=== PATIENT | male | born 1940 | race Caucasian/White ===

== ENCOUNTER → 2016-04-18 09:02 | Day surgery (SDC) | payer OTHER ==
[~2016-04-18 09:02] MED LIST: Acetaminophen TAB* 325 MG PO PRN; Buffered Lidocaine 1% SYR 3ML* 3 ML/SYR SYRINGE INTRADERM ONE; Buffered Lidocaine 1% SYR 3ML* 3 ML/SYR SYRINGE ONE; Cyclopentolate 1% OPTH.SOL* 2 ML BTL ONE; Flurbiprofen 0.03% OPTH.SOL* 2.5 ML BTL ONE; Lidocaine 1% MPF* 2 ML VIAL ONE; Midazolam* 1 MG/ML 2 ML VIAL (2 MG) ONE; Neomycin/Polymy/Dex OPHTH.OIN* 3.5 GM ONE; Phenylephrine 2.5% OPTH.SOL* 2 ML BTL ONE; Tetracaine 0.5% OPTH.SOL 4 ML* 1 DROP BTL ONE; Tropicamide 1% OPTH.SOL* BTL ONE
[2016-04-18 11:50] VITALS: BP 143/83
--- NOTE | 2016-04-18 21:31 | OP ---
DATE OF OPERATION: 04/18/16 [facility] DATE OF : 44 SURGEON: Dr. Zain Palacios. INSTRUCTOR DECORATING: None. ANESTHESIOLOGIST: Mauricio Luna MD ANESTHESIA: Topical with intravenous sedation. PRE-OP DIAGNOSIS: Cataract, right eye. POST-OP DIAGNOSIS: Cataract, right eye. OPERATIVE PROCEDURE: Phacoemulsification and cataract extraction with posterior chamber intraocular lens implant, right eye. COMPLICATIONS: None. BLOOD LOSS: None. DESCRIPTION OF PROCEDURE: The patient was brought to the operating room and received a small amount of intravenous sedation. A drop of Tetracaine was placed in his right eye. He was prepped and draped in the usual sterile fashion for ophthalmic surgery and attention was directed to the right eye where a speculum was placed. A paracentesis was created at the 11 o'clock position and 0.1 cc of 1 percent preservative-free Lidocaine was injected into the anterior chamber followed by DisCoVisc. The eye was digitally stabilized while a 2.75 mm keratome was used to create a triplanar clear corneal incision at the 9 o'clock position. A continuous curvilinear capsulorrhexis was created with a cystotome and Utrata forceps. BSS on a cannula was used to hydrodissect the lens from the capsule. Phacoemulsification was performed in a divide-and- conquer technique to create four fragments which were removed. Residual cortical material was removed with irrigation and aspiration. DisCoVisc was used to inflate the capsular bag and an SN6AD1 15.0 diopter lens was folded and inserted into the capsular bag. DisCoVisc was removed using irrigation and aspiration. BSS on a cannula was used to hydrate the corneal stroma and seal the wound. At the end of the case the pupil was round and the lens was centered. The eye was of normal pressure and the wound was water tight. The speculum was removed and topical Maxitrol ointment was placed on the surface of the eye. The eye was closed, patched and shielded and the patient was sent to the recovery room in stable condition with post operative instructions and follow-up appointment given. [id number]/CPS #: [id number] MTDD
== END | disposition home or self-care (01) ==
LOC: OREAST 09:02
PROVIDERS: ATTEND Ophthalmology
DX: H25.11 Age-related nuclear cataract, right eye (principal); Z86.711 Personal history of pulmonary embolism; Z79.01 Long term (current) use of anticoagulants
CPT/HCPCS: A9270-GY; J2250; V2632

== ENCOUNTER → 2016-04-25 09:39 | Day surgery (SDC) | payer OTHER ==
[~2016-04-25 09:39] MED LIST changes: -Buffered Lidocaine 1% SYR 3ML* 3 ML/SYR SYRINGE ONE; +Lidocaine 2% PF * 5 ML VIAL ONE; -Midazolam* 1 MG/ML 2 ML VIAL (2 MG) ONE; +Propofol* 10 MG/ML 20 ML BTL IV PUSH ONE
[2016-04-25 12:02] VITALS: BP 144/82
--- NOTE | 2016-04-25 15:23 | OP ---
DATE OF OPERATION/DATE OF DICTATION: 04/25/2016 - [facility] DATE OF : 1940. SURGEON: Dr. Zain Palacios. LABORER ORCHARD: None. ANESTHESIOLOGIST: Aleks Alcantar DO ANESTHESIA: Topical with intravenous sedation. PRE-OP DIAGNOSIS: Cataract, left eye. POST-OP DIAGNOSIS: Cataract, left eye. OPERATIVE PROCEDURE: Phacoemulsification and cataract extraction with posterior chamber intraocular lens implant, left eye. COMPLICATIONS: None. BLOOD LOSS: None. DESCRIPTION OF PROCEDURE: The patient was brought to the operating room and received a small amount of intravenous sedation. A drop of Tetracaine was placed in his left eye. He was prepped and draped in the usual sterile fashion for ophthalmic surgery and attention was directed to the left eye where a speculum was placed. A paracentesis was created at the 5 o'clock position and 0.1 cc of 1 percent preservative-free Lidocaine was injected into the anterior chamber followed by DisCoVisc. The eye was digitally stabilized while a 2.75 mm keratome was used to create a triplanar clear corneal incision at the 3 o'clock position. A continuous curvilinear capsulorrhexis was created with a cystotome and Utrata forceps. BSS on a cannula was used to hydrodissect the lens from the capsule. Phacoemulsification was performed in a [id number] technique to create four fragments which were removed. Residual cortical material was removed with irrigation and aspiration. DisCoVisc was used to inflate the capsular bag and an SN6AD1 12.5 diopter lens was folded and inserted into the capsular bag. DisCoVisc was removed using irrigation and aspiration. BSS on a cannula was used to hydrate the corneal stroma and seal the wound. At the end of the case the pupil was round and the lens was centered. The eye was of normal pressure and the wound was water tight. The speculum was removed and topical Maxitrol ointment was placed on the surface of the eye. The eye was closed, patched and shielded and the patient was sent to the recovery room in stable condition with post operative instructions and follow-up appointment given. [id number]/CPS #: [id number] [facility]
== END | disposition home or self-care (01) ==
LOC: OREAST 09:39
PROVIDERS: ATTEND Ophthalmology
DX: H25.12 Age-related nuclear cataract, left eye (principal); Z86.711 Personal history of pulmonary embolism; Z79.01 Long term (current) use of anticoagulants
CPT/HCPCS: A9270-GY; J2704; V2632

== ENCOUNTER 2017-10-30 21:20 | Emergency (ER) | payer OTHER ==
[2017-10-30 21:26] VITALS: BP 172/87
[2017-10-30] MEDS ORDERED: NS 0.9% 1000 ML* 1,000 ML IV ONE (21:28)
--- NOTE | 2017-10-30 21:28 | ED ---
Abdominal Pain/Male - HPI Summary HPI Summary: The pt is a 77 y/o male presenting to c/o severe LLQ pain since 20:30 today. The sudden onset pain is constant. 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 The pt is on Coumadin. 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 [id number], TONSILECYOMY. VASECTOMY 1982. [facility] 2013 ON FACE. WISDOM TEETH Hx Anesthesia Reactions: No - Family History Known Family History: Positive: Renal Disease - Nephrolithiasis Negative: Blood Disorder - Social History Occupation: Employed Full-time Lives: With Family Alcohol Use: None Substance Use Type: Reports: None Smoking Status (MU): Never Smoked Tobacco Review of Systems Constitutional: Negative - Fever Positive: Abdominal Pain - At the LLQ All Other Systems Reviewed And Are Negative: Yes Physical Exam - Summary Physical Exam Summary: General: well-appearing,moderate to severe pain distress Skin: warm, appears pale, dry Head: normal Eyes: EOMI, KENNEDY ENT: normal Neck: supple, nontender Respiratory: CTA, breath sounds present Cardiovascular: RRR Abdomen: tender to palpation of the LLQ Bowel: Hypoactive bowel sounds Musculoskeletal: normal, strength/ROM intact Neurological: sensory/motor intact, A&O x3 Psychological: affect/mood appropriate Triage Information Reviewed: Yes Vital Signs On Initial Exam: Initial Vital Signs Temp 95.8 F 10/30/17 21:22 Pulse 58 10/30/17 21:22 Resp 24 10/30/17 21:22 BP 172/87 10/30/17 21:22 Pulse Ox 100 10/30/17 21:22 Vital Signs Reviewed: Yes Abdominal Pain Fem Course/Dx - Course Course Of Treatment: TRANSFERED TO EMERGENCY DEPARTMENT FOR EVALUATION OF LEFT SIDED ABDOMINAL PAIN. - Diagnoses Provider Diagnoses: Left sided abdominal pain Discharge - Sign-Out/Discharge Documenting (check all that apply): Patient Departure - Transfer All imaging exams completed and their final reports reviewed: No Studies - Discharge Plan Condition: Stable Disposition: ADMITTED TO OTHER HOSPITAL Referrals: Yoseph Du MD [Primary Care Provider] - - Billing Disposition and Condition Condition: STABLE Disposition: Admitted to Other Hospital - Attestation Statements Document Initiated by Scribe: Yes Documenting Scribe: Sandra Henriquez Provider For Whom Scribe is Documenting (Include Credential): Dr. Dov Alcantar MD Scribe Attestation: Sandra Romo , scribed for Dr. Dov Aclantar MD on 10/30/17 at 2148. Scribe Documentation Reviewed: Yes Provider Attestation: The documentation as recorded by the scribeSandra accurately reflects the service I personally performed and the decisions made by , Dr. Dov Alcantar MD
[2017-10-30] MEDS ORDERED: Morphine VIAL* 10 MG/ML 1 ML VIAL IV ONE (21:29)
[2017-10-30] MEDS ORDERED: Ondansetron INJ* 2 MG/ML VIAL IV ONE (21:29)
== END 2017-10-30 21:50 | disposition short-term general hospital (02) ==
LOC: UCEAST 21:20
DX: R10.32 Left lower quadrant pain (principal); Z87.19 Personal history of other diseases of the digestive system; Z86.711 Personal history of pulmonary embolism; Z79.01 Long term (current) use of anticoagulants
CPT/HCPCS: 96360; 96374; 96375; 99203; G0463; J2270; J2405

== ENCOUNTER 2017-10-30 22:09 | Emergency (ER) | payer OTHER ==
[2017-10-30] MEDS ORDERED: Morphine VIAL* 10 MG/ML 1 ML VIAL IV ONE (22:29)
--- NOTE | 2017-10-30 22:38 | ED ---
Abdominal Pain/Male - HPI Summary HPI Summary: This patient is a 77 year old M BIBA to [facility] from urgent care with a chief complaint of L flank pain radiating to back that began at approximately 2030. The patient rates the pain 10/10 in severity. Symptoms aggravated by nothing. Symptoms alleviated by nothing. Patient reports nausea. - History of Current Complaint Chief Complaint: EDFlankPain Stated Complaint: ABD PAIN-SENT F/CC Time Seen by Provider: 10/30/17 22:29 Hx Obtained From: Patient Onset/Duration: Sudden Onset, Lasting Hours, Still Present Timing: Constant Severity Initially: Severe Severity Currently: Severe Pain Intensity: 10 Pain Scale Used: 0-10 Numeric Location: Flank Radiates: Yes Radiates to: Back Character: Sharp Aggravating Factor(s): Nothing Alleviating Factor(s): Nothing Associated Signs And Symptoms: Positive: Nausea - Allergies/Home Medications Allergies/Adverse Reactions: Allergies Allergy/AdvReac Type Severity Reaction Status Date / Time No Known Allergies Allergy Verified 10/30/17 21:27 PMH/Surg Hx/FS Hx/Imm Hx Previously Healthy: No Respiratory History: Reports: 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 [id number], TONSILECYOMY. VASECTOMY 1982. [facility] 2013 ON FACE. WISDOM TEETH Hx Anesthesia Reactions: No Infectious Disease History: No Infectious Disease History: Denies: Traveled Outside the [place] in Last 30 Days - Family History Known Family History: Positive: Renal Disease - Nephrolithiasis Negative: Blood Disorder - Social History Occupation: Employed Full-time Lives: With Family Alcohol Use: None Hx Substance Use: No Substance Use Type: Reports: None Hx Tobacco Use: No Smoking Status (MU): Never Smoked Tobacco Review of Systems Negative: Fever Positive: Nausea, Other - Positive L flank pain All Other Systems Reviewed And Are Negative: Yes Physical Exam - Summary Physical Exam Summary: Appearance: Well-appearing, Well-nourished, lying in bed comfortably Skin: Warm, dry, no obvious rash Eyes: sclera anicteric, no conjunctival pallor ENT: mucous membranes moist, pharynx appears normal Neck: Supple, nontender Respiratory: Clear to auscultation, no signs of respiratory distress Cardiovascular: Normal S1, S2. No murmurs. Normal distal pulses in tibial and radial bilaterally. Abdomen: Soft, nontender, normal active bowel sounds present, colicky in appearance Musculoskeletal: Normal, Strength/ROM Intact Neurological: A&Ox3, awake and alert, mentation is normal, speech is fluent and appropriate Psychiatric: affect is normal, does not appear anxious or depressed Triage Information Reviewed: Yes Vital Signs On Initial Exam: Initial Vitals Temp Pulse Resp BP Pulse Ox 97 F 66 24 168/110 100 10/30/17 22:25 10/30/17 22:25 10/30/17 22:25 10/30/17 22:25 10/30/17 22:25 Vital Signs Reviewed: Yes Diagnostics - Vital Signs Vital Signs Temp Pulse Resp BP Pulse Ox 10/30/17 22:25 97 F 66 24 168/110 100 - Laboratory Result Diagrams: 10/30/17 22:39 10/30/17 22:39 Lab Statement: Any lab studies that have been ordered have been reviewed, and results considered in the medical decision making process. - CT CT Abdomen and Pelvis CT Interpretation Completed By: Radiologist - CT abdomen and pelvis reveals, per radiologist, 1. Mildly obstructing 3 mm calculus distal third left ureter. 2. Bilateral nonobstructing renal calculi. 3. Diffuse colonic diverticulosis. ED physician has reviewed this radiology report. Re-Evaluation - Re-Evaluation First Eval Change: Improved Abdominal Pain Fem Course/Dx - Diagnoses Provider Diagnoses: Renal colic on left side Discharge - Sign-Out/Discharge Documenting (check all that apply): Patient Departure - Discharge Plan Condition: Good Disposition: HOME Prescriptions: Ondansetron [Zofran Odt] 8 mg PO Q6HR PRN #12 tab.rapdis PRN Reason: Nausea oxyCODONE TAB* [Roxycodone TAB 5 mg*] 5 mg PO Q4H PRN #20 tab MDD 8 tablets PRN Reason: Pain Patient Education Materials: Kidney Stones (ED) Referrals: Yoseph Du MD [Primary Care Provider] - - Billing Disposition and Condition Condition: GOOD Disposition: Home - Attestation Statements Document Initiated by Emmett: Yes Documenting Scribe: Sravani Sawyer Provider For Whom Emmett is Documenting (Include Credential): Víctor Borja MD Scribe Attestation: Sravain Romo, scribed for Víctor Borja MD on 10/31/17 at 0423. Scribe Documentation Reviewed: Yes Provider Attestation: The documentation as recorded by the Sravani troncoso accurately reflects the service I personally performed and the decisions made by me, Víctor Borja MD
[2017-10-30 22:46] LABS: ABS Basophils 0.1 10^3/ul (0-0.2); ABS Eosinophils 0 10^3/ul (0-0.6); ABS Lymphocytes 1.6 10^3/ul (1.0-4.8); ABS Monocytes 0.7 10^3/ul (0-0.8); ABS Neutrophils 15.9 10^3/ul (1.5-7.7); ABS Nucleated RBC 0 10^3/ul; Eosinophil % 0.1 % (0-6); Hematocrit 41 % (42-52); Lymphocyte % 8.6 % (25-47); Mean Corpuscular HGB Conc 34 g/dl (31-36); Mean Corpuscular Hemoglobin 31 pg (27-31); Mean Corpuscular Volume 90 fL (80-94); Mean Platelet Volume 8.6 um3 (7.4-10.4); Nucleated Red Blood Cells % 0; Platelet Count 273 10^3/ul (150-450); Red Blood Count 4.57 10^6/ul (4.00-5.40); Red Cell Distribution Width 13 % (10.5-15); White Blood Count 18.3 10^3/ul (3.5-10.8)
[2017-10-30 23:03] LABS: EGFR Non-African American 66.7 (>60)
--- NOTE | 2017-10-30 23:25 | RAD ---
EXAM: CT Abdomen and Pelvis Without Intravenous Contrast CLINICAL HISTORY: 77 years old, male; Pain; Abdominal pain; Flank; Left; Additional info: Left flank pain, suspect stone TECHNIQUE: Axial computed tomography images of the abdomen and pelvis without intravenous contrast. All CT scans at this facility use at least one of these dose optimization techniques: automated exposure control; mA and/or kV adjustment per patient size (includes targeted exams where dose is matched to clinical indication); or iterative reconstruction. Coronal and sagittal reformatted images were created and reviewed. COMPARISON: OT - HIP RT HIP RIGHT 2 VIEWS AND PELVIS 02/28/2016 12:09 PM FINDINGS: Lung bases: Pleural-parenchymal scarring lateral lower right thorax. Lung bases otherwise clear. ABDOMEN: Liver: Normal. Normal size. No masses. Gallbladder and bile ducts: Normal. No radiopaque calculi. No ductal dilation. Pancreas: Normal. No ductal dilation. Spleen: Normal. No splenomegaly. Adrenals: Normal. No mass. Kidneys and ureters: Mild left ureterectasis which terminates at a 0.3 cm calculus distal third left ureter (series 601, image 68). Associated moderate left perinephric edema. Punctate nonobstructing calculus right renal midpole and left inferior pole. No right pelvocaliectasis. Stomach and bowel: Incompletely distended grossly normal stomach. Normal caliber small bowel. Numerous colonic diverticula without adjacent inflammatory changes or associated wall thickening. PELVIS: Appendix: No dilation or periappendiceal inflammation. Bladder: Thin-walled bladder with no focal nodularity, perivesicular stranding, or calcifications. No stones. Reproductive: Surgically absent prostate. ABDOMEN and PELVIS: Intraperitoneal space: Normal. No pneumoperitoneum. No ascities. Bones/joints: Chronic compression fracture of the L2 vertebral body. The spine demonstrates mild degenerative changes at multiple levels. No fractures. No suspicious bone lesions. Soft tissues: Normal. No hernias. Vasculature: The aorta demonstrates mild atherosclerotic calcification. No abdominal aortic aneurysm. Lymph nodes: Normal. No enlarged lymph nodes. IMPRESSION: 1. Mildly obstructing 3 mm calculus distal third left ureter. 2. Bilateral nonobstructing renal calculi. 3. Diffuse colonic diverticulosis.
[2017-10-30] MEDS ORDERED: oxyCODONE TAB* 5 MG TAB PO ONE (23:47)
[2017-10-31 01:42] VITALS: BP 172/100
== END 2017-10-31 00:30 | disposition home or self-care (01) ==
LOC: ED 22:09
DX: N20.2 Calculus of kidney with calculus of ureter (principal); K57.30 Diverticulosis of large intestine without perforation or abscess without bleeding; R11.0 Nausea; Z86.711 Personal history of pulmonary embolism; Z79.01 Long term (current) use of anticoagulants; Z85.46 Personal history of malignant neoplasm of prostate
CPT/HCPCS: 36415; 74176; 80053; 83690; 85025; 96374; 99283; A9270-GY; J2270